=== PATIENT | female | born 1940 | race Caucasian/White ===

== ENCOUNTER 2023-06-20 23:11 | Emergency (ER) | payer MEDICARE ==
[2023-06-21] MEDS ORDERED: Ondansetron PF 4 MG/2 ML Vial ONE (00:32)
[2023-06-21] MEDS ORDERED: hydrALAZINE 20 MG/ML VIAL ONE (00:32)
[2023-06-21] MEDS ORDERED: Acetaminophen 500 MG TAB ONE (00:33)
[2023-06-21 01:24] LABS: #Eosinphils 0.1 10x3/uL (0.0-0.5); #Monocytes 0.7 10x3/uL (0.0-1.1); #Neutrophils 6.8 10x3/uL (1.5-8.4); %Basophils 0.3 % (0.0-2.0); %Eosinophils 0.9 % (0.0-6.0); %Lymphocytes 18.9 % (18.0-47.0); %Monocytes 7.3 % (0.0-10.0); %Neutrophils 72.4 % (40.0-75.0); Hematocrit 41.9 % (34.9-44.5); Mean Corpuscular HGB CONC 33.4 g/dL (32.0-36.0); Mean Corpuscular Hemoglobin 30.5 pg (27.0-33.0); Mean Corpuscular Volume 91.3 fl (81.6-98.3); Mean Platelet Volume 9.7 fl (7.4-10.4); Platelet Count 265 10x3/uL (150-450); RBC Distribution Width 12.9 % (11.5-14.5); Red Blood Cell (RBC) Count 4.59 10x6/uL (3.90-5.03); White Blood Cell (WBC) Count 9.3 10x3/uL (3.5-10.5)
[2023-06-21 01:35] LABS: ALT (SGPT) 11 U/L (8-55); AST (SGOT) 17 U/L (5-34); Alkaline Phosphatase 94 U/L (40-110); Anion Gap 14 mmol/L (10-20); BUN (Urea Nitrogen) 24 mg/dL (9.8-20.1); Bilirubin, Total 0.2 mg/dL (0.2-1.2); Calc. Creatinine Clearance 0 mL/min (70-130); Calcium 10.2 mg/dL (7.8-10.44); Carbon Dioxide 23 mmol/L (23-31); Chloride 103 mmol/L (98-107); Estimated GFR 46; Globulin 3.6 g/dL (2.4-3.5); Glucose 112 mg/dL (83-110); Protein, Total 7.6 g/dL (5.8-8.1); Sodium 136 mmol/L (136-145)
[2023-06-21 01:41] LABS: Troponin I Less than 0.010 ng/mL (< 0.028)
== END 2023-06-21 02:12 | disposition home or self-care (01) ==
LOC: CSHERS 23:11
DX: I10 Essential (primary) hypertension (principal); Z79.899 Other long term (current) drug therapy
CPT/HCPCS: 80053; 84484; 85025; J0360; 96374; 96375; J2405

== ENCOUNTER 2023-09-29 09:28 | Inpatient (IN) | payer MEDICARE ==
[2023-09-29 10:07] LABS: #Eosinphils 0.1 10x3/uL (0.0-0.5); #Neutrophils 12.6 10x3/uL (1.5-8.4); %Basophils 0.2 % (0.0-2.0); %Eosinophils 0.3 % (0.0-6.0); %Monocytes 6.4 % (0.0-10.0); %Neutrophils 81.7 % (40.0-75.0); Hematocrit 44.3 % (34.9-44.5); Hemoglobin 15.1 g/dL (12.0-15.5); Mean Corpuscular HGB CONC 34.1 g/dL (32.0-36.0); Mean Corpuscular Hemoglobin 31.1 pg (27.0-33.0); Mean Corpuscular Volume 91.2 fl (81.6-98.3); Mean Platelet Volume 9.3 fl (7.4-10.4); Platelet Count 330 10x3/uL (150-450); RBC Distribution Width 12.6 % (11.5-14.5); Red Blood Cell (RBC) Count 4.86 10x6/uL (3.90-5.03); White Blood Cell (WBC) Count 15.4 10x3/uL (3.5-10.5)
[2023-09-29] MEDS ORDERED: cloNIDine 0.1 MG TAB ONE (10:08)
[2023-09-29 10:14] LABS: ALT (SGPT) 35 U/L (8-55); AST (SGOT) 53 U/L (5-34); Albumin 4.5 g/dL (3.4-4.8); Alkaline Phosphatase 123 U/L (40-110); Anion Gap 17 mmol/L (10-20); BUN (Urea Nitrogen) 21 mg/dL (9.8-20.1); Bilirubin, Total 0.7 mg/dL (0.2-1.2); Calc. Creatinine Clearance 0 mL/min (70-130); Calcium 10.3 mg/dL (7.8-10.44); Carbon Dioxide 20 mmol/L (23-31); Chloride 102 mmol/L (98-107); Estimated GFR 42; Globulin 3.5 g/dL (2.4-3.5); Glucose 144 mg/dL (83-110); Lipase 99 U/L (8-78); Magnesium 1.7 mg/dL (1.6-2.6); PTT 28.3 sec (22.0-33.0); Potassium 4.7 mmol/L (3.5-5.1); Prothrombin Time 10.9 sec (9.5-12.1); Sodium 134 mmol/L (136-145)
[2023-09-29 10:20] LABS: Troponin I Less than 0.010 ng/mL (< 0.028)
[2023-09-29] MEDS ORDERED: Morphine 4 MG/ML VIAL ONE (10:21)
[2023-09-29] MEDS ORDERED: Nitroglycerin 0.4 MG TAB 1 EACH ONE (10:21)
[2023-09-29] MEDS ORDERED: Iopamidol 370 76% 100 ML VIAL ONE (11:32)
[2023-09-29 12:51] LABS: Lactic Acid 0.9 mmol/L (0.5-2.2)
[2023-09-29] MEDS ORDERED: Acetaminophen 325 MG TAB PO PRN (13:15)
[2023-09-29] MEDS ORDERED: Senokot S 8.6-50 MG TAB PO PRN (13:15)
[2023-09-29] MEDS ORDERED: Acetaminophen 650 MG Suppository PR PRN (13:15)
[2023-09-29] MEDS ORDERED: HYDROcodone/Acetaminophen 5/325 mg Tablet PO PRN (13:15)
[2023-09-29] MEDS: Colchicine 0.6 MG TAB PO SCH ×2 (17:50→23:37)
[2023-09-29] MEDS: HYDROcodone/Acetaminophen 5/325 mg Tablet PO PRN (17:50)
[2023-09-29 19:33] VITALS: BMI 31.6
[2023-09-29] MEDS: Atenolol 25 MG TAB PO SCH (21:20)
[2023-09-29] MEDS: Famotidine 20 MG TAB PO SCH (21:21)
[2023-09-30 03:44] LABS: #Eosinphils 0.1 10x3/uL (0.0-0.5); #Neutrophils 8.3 10x3/uL (1.5-8.4); %Basophils 0.2 % (0.0-2.0); %Eosinophils 0.8 % (0.0-6.0); %Lymphocytes 12.9 % (18.0-47.0); %Monocytes 8.9 % (0.0-10.0); Hematocrit 36.4 % (34.9-44.5); Hemoglobin 12.5 g/dL (12.0-15.5); Mean Corpuscular HGB CONC 34.3 g/dL (32.0-36.0); Mean Corpuscular Hemoglobin 30.9 pg (27.0-33.0); Mean Corpuscular Volume 89.9 fl (81.6-98.3); Mean Platelet Volume 9.4 fl (7.4-10.4); Platelet Count 241 10x3/uL (150-450); RBC Distribution Width 12.7 % (11.5-14.5); Red Blood Cell (RBC) Count 4.05 10x6/uL (3.90-5.03); White Blood Cell (WBC) Count 10.8 10x3/uL (3.5-10.5)
[2023-09-30 03:59] LABS: ALT (SGPT) 71 U/L (8-55); AST (SGOT) 73 U/L (5-34); Albumin 3.5 g/dL (3.4-4.8); Alkaline Phosphatase 111 U/L (40-110); Anion Gap 13 mmol/L (10-20); BUN (Urea Nitrogen) 15 mg/dL (9.8-20.1); Bilirubin, Total 0.8 mg/dL (0.2-1.2); Calc. Creatinine Clearance 68 mL/min (70-130); Calcium 9.8 mg/dL (7.8-10.44); Carbon Dioxide 23 mmol/L (23-31); Chloride 99 mmol/L (98-107); Estimated GFR 66; Globulin 3.2 g/dL (2.4-3.5); Glucose 137 mg/dL (83-110); Potassium 4.1 mmol/L (3.5-5.1); Protein, Total 6.7 g/dL (5.8-8.1); Sodium 131 mmol/L (136-145)
[2023-09-30] MEDS ORDERED: Levothyroxine Sodium 50 MCG TAB PO SCH (06:00)
[2023-09-30] MEDS: Levothyroxine Sodium 50 MCG TAB PO SCH (06:30)
[2023-09-30] MEDS ORDERED: Allopurinol 100 MG TAB PO SCH (09:00)
[2023-09-30] MEDS ORDERED: Losartan 25 MG TAB PO SCH (09:00)
[2023-09-30] MEDS ORDERED: Atenolol 25 MG TAB PO SCH (09:00)
[2023-09-30 09:19] VITALS: BP 133/71; TEMP 98.4
[2023-09-30] MEDS: Enoxaparin 40 MG (0.4 mL) SYRINGE SC SCH (09:36)
[2023-09-30] MEDS: Allopurinol 100 MG TAB PO SCH (09:37)
[2023-09-30] MEDS: Spironolactone 25 MG TAB PO SCH (09:38)
[2023-09-30] MEDS: Colchicine 0.6 MG TAB PO SCH (09:38)
[2023-09-30] MEDS: Losartan 50 MG TAB PO SCH (09:39)
[2023-09-30] MEDS: Loratadine 10 MG TAB PO SCH (09:39)
[2023-09-30] MEDS ORDERED: Famotidine 20 MG TAB PO SCH (21:00)
== END 2023-09-30 11:50 | disposition home or self-care (01) | DRG 315 ==
LOC: CSHERS 09:28 → SUATTDRO 09:28 → CSHERHOLD 12:16 → CSHTELE 16:36
PROVIDERS: ADMIT Family Medicine; ATTEND Internal Medicine
DX: T82.7XXA Infection and inflammatory reaction due to other cardiac and vascular devices, implants and grafts, initial encounter (principal); E87.1 Hypo-osmolality and hyponatremia; I30.9 Acute pericarditis, unspecified; I13.0 Hypertensive heart and chronic kidney disease with heart failure and stage 1 through stage 4 chronic kidney disease, or unspecified chronic kidney disease; I50.32 Chronic diastolic (congestive) heart failure; E03.9 Hypothyroidism, unspecified; Z66 Do not resuscitate; Z95.0 Presence of cardiac pacemaker; Z90.49 Acquired absence of other specified parts of digestive tract; Z90.710 Acquired absence of both cervix and uterus; I48.0 Paroxysmal atrial fibrillation; E78.5 Hyperlipidemia, unspecified; K21.9 Gastro-esophageal reflux disease without esophagitis; N18.9 Chronic kidney disease, unspecified; M19.90 Unspecified osteoarthritis, unspecified site; M10.9 Gout, unspecified; Z98.41 Cataract extraction status, right eye; Z98.42 Cataract extraction status, left eye; Z82.49 Family history of ischemic heart disease and other diseases of the circulatory system; Z88.8 Allergy status to other drugs, medicaments and biological substances; Z79.899 Other long term (current) drug therapy
CPT/HCPCS: 36415; 71045; 71275; 74174; 80053; 83605; 83690; 83735; 83880; 84145; 84443; 84484; 84550; 85025; 85610; 85730; 86140; 93005; 93306; 94762; 96374; J1650; J2270; Q9967

== ENCOUNTER 2023-10-14 21:09 | Inpatient (IN) | payer MEDICARE ==
[2023-10-14] MEDS ORDERED: Ondansetron PF 4 MG/2 ML Vial ONE (22:26)
[2023-10-14 22:43] LABS: ALT (SGPT) 42 U/L (8-55); AST (SGOT) 35 U/L (5-34); Albumin 3.3 g/dL (3.4-4.8); Alkaline Phosphatase 245 U/L (40-110); Anion Gap 14 mmol/L (10-20); BUN (Urea Nitrogen) 17 mg/dL (9.8-20.1); Calc. Creatinine Clearance 0 mL/min (70-130); Calcium 9.7 mg/dL (7.8-10.44); Carbon Dioxide 24 mmol/L (23-31); Chloride 93 mmol/L (98-107); Estimated GFR 38; Globulin 3.8 g/dL (2.4-3.5); Glucose 129 mg/dL (83-110); Potassium 4.7 mmol/L (3.5-5.1); Protein, Total 7.1 g/dL (5.8-8.1); Sodium 126 mmol/L (136-145)
[2023-10-14 22:50] LABS: #Basophils 0.05 10x3/uL (0.0-0.2); #Eosinphils 0.07 10x3/uL (0.0-0.5); #Monocytes 1.69 10x3/uL (0.0-1.1); #Neutrophils 13.21 10x3/uL (1.5-8.4); %Basophils 0.3 % (0.0-2.0); %Eosinophils 0.4 % (0.0-6.0); %Lymphocytes 7.5 % (18.0-47.0); %Monocytes 10.4 % (0.0-10.0); Hematocrit 40.2 % (34.9-44.5); Hemoglobin 13.8 g/dL (12.0-15.5); Mean Corpuscular HGB CONC 34.3 g/dL (32.0-36.0); Mean Corpuscular Hemoglobin 30.5 pg (27.0-33.0); Mean Corpuscular Volume 88.7 fl (81.6-98.3); Mean Platelet Volume 9.9 fl (7.4-10.4); Platelet Count 413 10x3/uL (150-450); RBC Distribution Width 12.5 % (11.5-14.5); Red Blood Cell (RBC) Count 4.53 10x6/uL (3.90-5.03); Troponin I Less than 0.010 ng/mL (< 0.028); White Blood Cell (WBC) Count 16.3 10x3/uL (3.5-10.5)
[2023-10-14 23:05] LABS: Influenza A by NAA Not Detected (NotDetected); Influenza B by NAA Not Detected (NotDetected); SARS-CoV-2 NAA Rapid Test Not Detected (NotDetected)
[2023-10-14] MEDS ORDERED: Metoclopramide HCl 10 MG (2 mL) VIAL ONE (23:39)
[2023-10-15] MEDS ORDERED: Morphine 2 MG/ML VIAL ONE (01:09)
[2023-10-15] MEDS ORDERED: Azithromycin 500 MG VIAL ONE (01:25)
[2023-10-15] MEDS ORDERED: Cefepime 2 GM VIAL ONE (01:25)
[2023-10-15] MEDS ORDERED: Acetaminophen 325 MG TAB PO PRN (01:26)
[2023-10-15] MEDS ORDERED: Calcium Carbonate 500 MG ChewTAB PO PRN (01:26)
[2023-10-15] MEDS ORDERED: Guaifenesin DM 100-10/5 ML UDCUP PO PRN (01:26)
[2023-10-15] MEDS: Sodium Chloride 0.9% 1,000 ML IV SCH (03:14)
[2023-10-15 03:25] VITALS: BMI 29.0
[2023-10-15 03:32] LABS: Bilirubin Neg (Negative); Blood, Urine Negative (Negative); Clarity Clear (Clear); Glucose, Urine (Dipstick) Normal (Negative); Ketone, Urine Negative (Negative); Leukocyte Negative (Negative); Nitrite Negative (Negative); Protein, Urine (Dipstick) Negative (Neg-Trace); Urobilinogen Normal mg/dL (Less than 2)
[2023-10-15 03:40] LABS: RBC/HPF 0-3 HPF (0-3); Squamous Epithelial 0-3 HPF (0-3); WBC/HPF 0-3 HPF (0-3)
[2023-10-15 03:41] LABS: Bacteria/HPF Rare-Few HPF (None Seen)
[2023-10-15 03:49] LABS: Legionella Urinary Ag Negative (Negative); Strep pneumo Urine Ag NEGATIVE (NEGATIVE)
[2023-10-15 05:33] LABS: #Basophils 0.02 10x3/uL (0.0-0.2); #Eosinphils 0.02 10x3/uL (0.0-0.5); #Monocytes 0.97 10x3/uL (0.0-1.1); #Neutrophils 8.76 10x3/uL (1.5-8.4); %Basophils 0.2 % (0.0-2.0); %Eosinophils 0.2 % (0.0-6.0); %Lymphocytes 9.4 % (18.0-47.0); %Neutrophils 80.8 % (40.0-75.0); Hematocrit 36.2 % (34.9-44.5); Mean Corpuscular HGB CONC 33.1 g/dL (32.0-36.0); Mean Corpuscular Hemoglobin 30.1 pg (27.0-33.0); Mean Corpuscular Volume 90.7 fl (81.6-98.3); Platelet Count 298 10x3/uL (150-450); RBC Distribution Width 12.3 % (11.5-14.5); Red Blood Cell (RBC) Count 3.99 10x6/uL (3.90-5.03); White Blood Cell (WBC) Count 10.8 10x3/uL (3.5-10.5)
[2023-10-15 05:46] LABS: Anion Gap 14 mmol/L (10-20); BUN (Urea Nitrogen) 16 mg/dL (9.8-20.1); Calc. Creatinine Clearance 49 mL/min (70-130); Calcium 9.6 mg/dL (7.8-10.44); Carbon Dioxide 23 mmol/L (23-31); Chloride 99 mmol/L (98-107); Estimated GFR 49; Glucose 113 mg/dL (83-110); Potassium 4.6 mmol/L (3.5-5.1); Sodium 131 mmol/L (136-145)
[2023-10-15 05:47] LABS: CRP (Inflammatory) 25.41 mg/dL (= or < 0.5); Magnesium 1.5 mg/dL (1.6-2.6)
[2023-10-15 05:54] LABS: Troponin I Less than 0.010 ng/mL (< 0.028)
[2023-10-15] MEDS: Levothyroxine Sodium 50 MCG TAB PO SCH (06:19)
[2023-10-15] MEDS: Magnesium 2 GM/50 ML(in water) 2 GM in Premix 1 BAG IVPB SCH ×2 (06:23→10:39)
[2023-10-15] MEDS: Atenolol 25 MG TAB PO SCH (09:47)
[2023-10-15] MEDS: Allopurinol 100 MG TAB PO SCH (09:47)
[2023-10-15] MEDS: Cefepime 2 GM in Sodium Chloride 0.9% 100 ML IVPB SCH (15:15)
[2023-10-15] MEDS: Enoxaparin 40 MG (0.4 mL) SYRINGE SC SCH (21:22)
[2023-10-15] MEDS: HYDROcodone/Acetaminophen 5/325 mg Tablet PO PRN (23:29)
[2023-10-16] MEDS: Azithromycin 500 MG in Sodium Chloride 0.9% 250 ML 250 ML IVPB SCH (00:54)
[2023-10-16 04:10] LABS: Anion Gap 11 mmol/L (10-20); BUN (Urea Nitrogen) 15 mg/dL (9.8-20.1); Calc. Creatinine Clearance 60 mL/min (70-130); Calcium 9.6 mg/dL (7.8-10.44); Carbon Dioxide 23 mmol/L (23-31); Chloride 103 mmol/L (98-107); Estimated GFR 61; Glucose 98 mg/dL (83-110); Magnesium 1.9 mg/dL (1.6-2.6); Sodium 133 mmol/L (136-145)
[2023-10-16 04:31] LABS: #Basophils 0.03 10x3/uL (0.0-0.2); #Eosinphils 0.13 10x3/uL (0.0-0.5); #Monocytes 0.96 10x3/uL (0.0-1.1); #Neutrophils 5.36 10x3/uL (1.5-8.4); %Basophils 0.3 % (0.0-2.0); %Eosinophils 1.5 % (0.0-6.0); %Lymphocytes 25.3 % (18.0-47.0); %Neutrophils 61.7 % (40.0-75.0); Hematocrit 37.5 % (34.9-44.5); Hemoglobin 12.8 g/dL (12.0-15.5); Mean Corpuscular HGB CONC 34.1 g/dL (32.0-36.0); Mean Corpuscular Hemoglobin 30.7 pg (27.0-33.0); Mean Corpuscular Volume 89.9 fl (81.6-98.3); Mean Platelet Volume 9.5 fl (7.4-10.4); Platelet Count 367 10x3/uL (150-450); RBC Distribution Width 12.6 % (11.5-14.5); Red Blood Cell (RBC) Count 4.17 10x6/uL (3.90-5.03); White Blood Cell (WBC) Count 8.7 10x3/uL (3.5-10.5)
[2023-10-16] MEDS: Magnesium 2 GM/50 ML(in water) 2 GM in Premix 1 BAG IVPB SCH (09:29)
[2023-10-16] MEDS: Atenolol 25 MG TAB PO SCH (09:29)
[2023-10-16] MEDS: Spironolactone 25 MG TAB PO SCH (12:23)
[2023-10-16] MEDS: Ondansetron PF 4 MG/2 ML Vial IVP PRN (17:47)
[2023-10-16] MEDS: HYDROcodone/Acetaminophen 5/325 mg Tablet PO PRN (20:59)
[2023-10-17 04:03] LABS: ALT (SGPT) 21 U/L (8-55); AST (SGOT) 18 U/L (5-34); Albumin 2.5 g/dL (3.4-4.8); Alkaline Phosphatase 156 U/L (40-110); Anion Gap 11 mmol/L (10-20); BUN (Urea Nitrogen) 17 mg/dL (9.8-20.1); Bilirubin, Total 0.5 mg/dL (0.2-1.2); Calc. Creatinine Clearance 58 mL/min (70-130); Calcium 10.2 mg/dL (7.8-10.44); Carbon Dioxide 24 mmol/L (23-31); Chloride 101 mmol/L (98-107); Estimated GFR 59; Glucose 96 mg/dL (83-110); Magnesium 1.8 mg/dL (1.6-2.6); Potassium 4.3 mmol/L (3.5-5.1); Protein, Total 6.5 g/dL (5.8-8.1); Sodium 132 mmol/L (136-145)
[2023-10-17 07:57] VITALS: TEMP 98.7
[2023-10-17 11:21] VITALS: BP 140/86
== END 2023-10-17 12:35 | disposition home or self-care (01) | DRG 871 ==
LOC: CSHERS 21:09 → CSHTELE 10-15 01:31
PROVIDERS: ADMIT Student in an Organized Health Care Education/Training Program; ATTEND Family Medicine
DX: A41.9 Sepsis, unspecified organism (principal); J18.9 Pneumonia, unspecified organism; I31.39 Other pericardial effusion (noninflammatory); I50.32 Chronic diastolic (congestive) heart failure; E87.1 Hypo-osmolality and hyponatremia; K52.1 Toxic gastroenteritis and colitis; N17.9 Acute kidney failure, unspecified; I13.0 Hypertensive heart and chronic kidney disease with heart failure and stage 1 through stage 4 chronic kidney disease, or unspecified chronic kidney disease; E78.5 Hyperlipidemia, unspecified; K21.9 Gastro-esophageal reflux disease without esophagitis; E03.9 Hypothyroidism, unspecified; M10.9 Gout, unspecified; I65.29 Occlusion and stenosis of unspecified carotid artery; E86.1 Hypovolemia; E83.42 Hypomagnesemia; E86.0 Dehydration; I48.0 Paroxysmal atrial fibrillation; E78.2 Mixed hyperlipidemia; N18.2 Chronic kidney disease, stage 2 (mild); I49.5 Sick sinus syndrome; R53.81 Other malaise; Z98.890 Other specified postprocedural states; Z90.710 Acquired absence of both cervix and uterus; Z79.899 Other long term (current) drug therapy; Z79.890 Hormone replacement therapy; Z90.49 Acquired absence of other specified parts of digestive tract; Z82.49 Family history of ischemic heart disease and other diseases of the circulatory system; Z95.0 Presence of cardiac pacemaker; Z98.41 Cataract extraction status, right eye; Z98.42 Cataract extraction status, left eye
CPT/HCPCS: 36415; 36416; 71045; 80048; 80053; 81001; 83605; 83735; 83880; 84145; 84443; 84484; 85025; 86140; 87040; 87449; 87899; 93005; 93010; 93306; 96365; 96367; 96375; J0456; J0692; J1650; J2272; J2405; J2765; J3475; J3490; J7050

== ENCOUNTER 2024-02-26 16:00 | Outpatient (CLI) | payer MEDICARE | END 2024-02-26 16:01 | disposition home or self-care (01) | LOC: CSHSLEEP 16:00 | PROVIDERS: ATTEND Internal Medicine | DX: G47.33 Obstructive sleep apnea (adult) (pediatric) (principal); G47.61 Periodic limb movement disorder | CPT/HCPCS: 95810 ==

== ENCOUNTER 2024-05-03 08:33 | Outpatient (CLI) | payer MEDICARE | END 2024-05-03 08:34 | disposition home or self-care (01) | LOC: CSHSLEEP 08:33 | PROVIDERS: ATTEND Internal Medicine | DX: G47.33 Obstructive sleep apnea (adult) (pediatric) (principal); G47.61 Periodic limb movement disorder | CPT/HCPCS: 95811 ==